=== PATIENT | male | born 1985 | race Hispanic/Latino ===

== ENCOUNTER → 2019-10-20 | Outpatient (CLI) | payer BC ==
--- NOTE | 2019-10-24 08:34 | SLEEPCENT ---
DATE OF PROCEDURE: ORDERED BY: ALEXIS Ayon Nocturnal polysomnography was performed for evaluation of sleep physiology in this patient with a history of snoring and nonrestorative sleep who has comorbidity of acid reflux disease. 7 hours and 24 minutes of data were reviewed. There were 383 minutes of sleep identified. Sleep latency was normal at 4.5 minutes. Rapid eye movement (REM) latency was mildly delayed at 150 minutes. Sleep architecture showed fragmentation. Overall sleep efficiency was 88.4%. The patient's electrocardiogram showed a sinus rhythm with an average heart rate of 76 beats per minute. Rate ranged 62-100. Electroencephalogram (EEG) showed normal waveforms for awake and sleep. There were 206 respiratory events identified of 10 seconds in duration or greater for an apnea-hypopnea index of 32.2. The events were primarily obstructive not exclusive to sleep stage nor body posture. Arousals from respiratory events occurred 14.7 times per hour and oxygen desaturations were seen into the 60s. There was also some limb activity noted in the electromyogram (EMG) leads, 2 trains of 30 events were identified. Limb movement arousal index 6.7. IMPRESSION: Severe obstructive sleep apnea syndrome (G47.33). Apnea-hypopnea index 32.2. RECOMMENDATIONS: The patient should be encouraged to return to the sleep disorder center for pressure therapy. In the interim, alcohol and sedative avoidance should be practiced and caution exercised during operation of motor vehicles.
== END ==
LOC: M SLEEP 20:00
PROVIDERS: ATTEND Nurse Practitioner Family
DX: R06.83 Snoring (principal)

== ENCOUNTER → 2019-11-24 | Outpatient (CLI) | payer BC ==
--- NOTE | 2019-11-29 14:17 | SLEEPCENT ---
DATE OF STUDY: 11/24/2019 ORDERED BY: Cristiane Iniguez Nocturnal polysomnography was performed for the titration of pressure therapy in this patient with obstructive sleep apnea syndrome and apnea hypopnea index of 32.2. For testing, a ResMed Air Fit F30 full face mask of medium size was used and 4 cm of water pressure were applied to the circuit and the lights were extinguished. 7 hours and 82 minutes of data were reviewed. There were 404 minutes of sleep identified. Sleep latency was short at 4.5 minutes. Rapid eye movement (REM) latency was short at 59 minutes. Sleep architecture was good with 5 REM cycles appreciate.d overall sleep efficiency was 95.3%. The patient's electrocardiogram (EKG) showed a sinus rhythm with an average heart rate of 68 beats per minute. Electroencephalogram (EEG) showed normal waveforms for awake and sleep. Respiratory events were fully palliated with CPAP at a pressure of 16. IMPRESSION: Obstructive sleep apnea syndrome (G47.33). RECOMMENDATION: Nightly use of pressure therapy at 16 cm of water pressure.
== END ==
LOC: M SLEEP 20:00
PROVIDERS: ATTEND Nurse Practitioner Family
DX: G47.33 Obstructive sleep apnea (adult) (pediatric) (principal)

== ENCOUNTER → 2021-05-14 | Outpatient (CLI) | payer BC ==
[~2021-05-14] MED LIST: GASTROGRAFIN SOLUTION 30ML (Q9963) ONE; ISOVUE-370 76% 100ML VIAL ONE
--- NOTE | 2021-05-14 16:09 | REP ---
INDICATION: RLQ PAIN. COMPARISON: 03/03/2009 the only prior TECHNIQUE: Standard helical technique after the intravenous administration of 100 cc Isovue 370. Oral bowel preparatory contrast was also administered prior to the exam. FINDINGS: The lung bases are clear and unchanged. Mild diffuse low density is suspected throughout the hepatic parenchyma, however, there are no pre contrast-enhanced examinations for comparison. There are no enhancing hepatic lesions. The gallbladder, spleen, pancreas, adrenal glands, and kidneys are essentially unchanged and again seen to be within normal limits. The abdominal aorta and para-aortic regions are within normal limits. There is sigmoid colon diverticulosis which has developed since the last exam. There is very mild potential Maggi diverticular fatty infiltration. The bowel loops and the mesenteries are otherwise unremarkable. The appendix is well visualized and is normal. There is no evidence of free fluid or free air. There is no evidence of a mass or adenopathy. Bone window technique throughout the examination shows the osseous structures to be stable and intact. IMPRESSION: Sigmoid colon diverticulosis has developed since the last exam and there is evidence to suggest possible mild sigmoid colon diverticulitis. The Maggi diverticular fat infiltration is extremely subtle. This should be correlated clinically with appropriate follow-up if clinically relevant. There is also evidence of mild diffuse fatty infiltration of the liver. <Electronically signed by Rodrigo Christensen > 05/14/21 0416
== END ==
LOC: M PLAIMG 12:41
PROVIDERS: ATTEND Physician Assistant Medical
DX: K57.90 Diverticulosis of intestine, part unspecified, without perforation or abscess without bleeding (principal)

== ENCOUNTER → 2022-01-08 | Outpatient (CLI) | payer BC | LOC: M LAB 11:28 | PROVIDERS: ATTEND Physician Assistant | DX: L44.1 Lichen nitidus (principal) ==

== ENCOUNTER → 2025-01-23 | Outpatient (REF) | payer BC ==
[2025-01-23 13:08] LABS: IRON (FE) 85 UG/DL (65-175); PERCENT SATURATION 23.5 % (19.7-50.0)
[2025-01-23 13:54] LABS: HEPATITIS C VIRUS ABY INDEX < 0.02 INDEX (<0.8)
[2025-01-24 13:33] LABS: HEPATITIS B SURF AB QUANT 7 mIU/mL (> OR = 10)
[2025-01-24 13:48] LABS: HEPATITIS B CORE ANTIBODY IGG NON-REACTIVE (NON-REACTIVE)
== END ==
LOC: M LAB REF 12:06
PROVIDERS: ATTEND Internal Medicine
DX: K76.0 Fatty (change of) liver, not elsewhere classified (principal); K74.02 Hepatic fibrosis, advanced fibrosis